=== PATIENT | female | born 1930 | race Caucasian/White ===

== ENCOUNTER → 2017-06-03 | Outpatient (CLI) | payer MEDICARE, OTHER ==
[~2017-06-03] MED LIST: ASPI-650 PO; ATOR10TA23 PO; IBUP200C11 PO; METO25TA54 PO
--- NOTE | 2017-06-03 17:47 | RADRPT ---
PROCEDURE: US Thyroid. CLINICAL INDICATION: Thyroid nodule. TECHNIQUE: High-resolution sonography of the thyroid was performed in the axial and sagittal plane s. COMPARISON: None. FINDINGS: The right lobe measures 4.7 x 1.5 x 1.8 cm. The left lobe measures 4.1 x 1.4 x 1.5 cm. The isthmus measures 0.4 cm. There is a nodule in the right lobe inferiorly posteriorly measuring 1.7 x 2.1 x 1.6 cm. The nodule is solid, hypoechoic, wider than tall, has smooth margins, and no echogenic foci. There is a hypoechoic nodule in the mid right lobe anteriorly measuring 0.5 x 0.7 x 0.3 cm. A benign cystic nodule is present in the left lobe inferiorly measuring 0.6 cm. Several smaller nodules are present bilaterally. The thyroid echogenicity is otherwise normal. The thyroid is normal in size. IMPRESSION: 1. Nodule in the right lobe measuring 1.7 x 2.1 x 1.6 cm. TIRADS category 4. Ultrasound-guided biop sy should be considered. 2. Several smaller nodules bilaterally which are probably benign and require no further evaluation. RPTAT: QQ .Edgar Gómez MD, MD Date Time Electronically viewed and signed by .Edgar Gómez MD, on 06/03/2017 17:47 .R/
== END | disposition home or self-care (01) ==
LOC: U/S 16:30
PROVIDERS: ATTEND Internal Medicine
DX: R22.1 Localized swelling, mass and lump, neck (principal)
CPT/HCPCS: 76536

== ENCOUNTER 2018-06-26 18:59 | Emergency (ER) | END 2018-06-26 20:56 | disposition home or self-care (01) ==